=== PATIENT | female | born 1960 | race Caucasian/White ===

== ENCOUNTER 2022-04-17 20:15 | Emergency (ER) | payer BC, MEDICAID ==
[~2022-04-17] VITALS: Ht 162.6 cm; Wt 61.2 kg
--- NOTE | 2022-04-17 21:07 | NUR ---
Dr. Ramírez at bedside for MSE.
[2022-04-17 21:38] LABS: *BILIRUBIN,URIN NEGATIVE (NEGATIVE); *BLOOD, URINE NEGATIVE (NEGATIVE); *CLARITY,URINE CLEAR (CLEAR); *COLOR,URINE YELLOW (YELLOW); *KETONES,URINE NEGATIVE (NEGATIVE); *UROBILINOGEN,URINE 0.2 E.U./dl (NORMAL); LEUKOCYTE ESTERASE ,URINE NEGATIVE (NEGATIVE); NITRITE, URINE NEGATIVE (NEGATIVE); PH,URINE 6.5 (5.0-8.0); UGLUCOSE NEGATIVE (NEGATIVE)
[2022-04-17 21:39] LABS: HEMATOCRIT 36.6 % (31.2-41.9); MEAN CORPUSCULAR HEMOGLOBIN 32.5 uug (24.7-32.8); MEAN CORPUSCULAR VOLUME 96.6 fL (75.5-95.3); PLATELET COUNT (AUTO) 221 K/uL (179-408)
[2022-04-17 21:45] LABS: CARBON DIOXIDE 27 mmol/L (21-32); CHLORIDE 105 mmol/L (98-107); CREATININE 0.6 mg/dL (0.6-1.3); GLUCOSE 115 mg/dL (74-106); UREA NITROGEN, BLOOD 12 mg/dL (7-18)
[2022-04-17] MEDS ORDERED: KETOROLAC TROMETHAMINE 30 MG INJ IM ONE (21:45)
[2022-04-17 21:57] LABS: ALANINE AMINOTRANSFERASE 23 U/L (14-59); ALKALINE PHOSPHATASE 42 U/L (50-136); ASPARTATE AMINOTRANSFERASE 13 U/L (15-37); BILIRUBIN,DIRECT 0.1 mg/dL (0.0-0.2); BILIRUBIN,TOTAL 0.2 mg/dL (0.2-1.0); TOTAL PROTEIN, SERUM 6.8 g/dL (6.4-8.2)
[2022-04-17] MEDS ORDERED: KETOROLAC TROMETHAMINE 30 MG INJ ONE (22:07)
--- NOTE | 2022-04-17 23:24 | NUR ---
Pt out of ER for CT.
[2022-04-18] MEDS ORDERED: NAPR-1164 PO (02:48)
[2022-04-18] MEDS ORDERED: POLY119P2 PO (02:48)
--- NOTE | 2022-04-18 02:53 | NUR ---
Patient discharged to home in stable condition. Written and verbal after care instructions given. Patient verbalizes understanding of instructions. Stressed follow up or return to ER for worsening s/s. Patient out of ER with steady gait, no acute signs of distress, VSS, all belongings taken, provided with copies of lab and imaging results.
[2022-04-18 02:54] VITALS: BP 125/82
== END 2022-04-18 02:54 | disposition home or self-care (01) ==
LOC: ER 20:15
DX: M54.50 Low back pain, unspecified (principal); R94.31 Abnormal electrocardiogram [ECG] [EKG]; K21.9 Gastro-esophageal reflux disease without esophagitis
CPT/HCPCS: 99285; 74176; 71045; 80076; 80048; 81003; 82550; 85025; 85379; 84484 ×2; 36415; 93005; 96372; J1885; J7040; A4663

== ENCOUNTER 2023-05-26 21:00 | Emergency (ER) | payer BC ==
[~2023-05-26] VITALS: Ht 162.6 cm; Wt 62.6 kg
[~2023-05-26 21:00] MED LIST: NAPR-1164 PO; POLY119P2 PO
[2023-05-26 21:46] LABS: BASOPHILS # (AUTO) 0.1 K/UL (0.0-0.2); BASOPHILS % (AUTO) 1.1 % (0.0-2.0); EOSINOPHILS # (AUTO) 0.1 K/uL (0.0-0.7); EOSINOPHILS % (AUTO) 1.6 % (0.0-7.0); HEMATOCRIT 39.2 % (31.2-41.9); HEMOGLOBIN 13.4 g/dL (10.9-14.3); LYMPHOCYTES # (AUTO) 2.6 K/uL (0.8-4.8); LYMPHOCYTES % (AUTO) 39.4 % (20.5-51.5); MEAN CORPUSCULAR HEMOGLOBIN 32.4 uug (24.7-32.8); MEAN CORPUSCULAR HGB CONC 34 g/dL (32.3-35.6); MEAN CORPUSCULAR VOLUME 94.9 fL (75.5-95.3); MONOCYTES # (AUTO) 0.6 K/uL (0.1-1.30); MONOCYTES % (AUTO) 9.1 % (0.0-11.0); NEUTROPHILS # (AUTO) 3.2 K/uL (1.8-8.9); NEUTROPHILS % (AUTO) 48.8 % (38.5-71.5); PLATELET COUNT (AUTO) 232 K/uL (179-408); RED BLOOD CELL COUNT(AUTO) 4.13 MIL/uL (3.63-4.92); RED CELL DISTRIBUTION WIDTH 13.2 % (12.3-17.7); WHITE BLOOD COUNT (AUTO) 6.5 K/uL (3.8-11.8)
[2023-05-26 21:47] LABS: DIFFERENTIAL COMMENT 1
[2023-05-26 21:54] LABS: CALCIUM 8.6 mg/dL (8.5-10.1); CREATININE 0.8 mg/dL (0.6-1.3); POTASSIUM 3.9 mmol/L (3.5-5.1)
[2023-05-26 22:03] LABS: *BILIRUBIN,URIN NEGATIVE (NEGATIVE); *BLOOD, URINE NEGATIVE (NEGATIVE); *CLARITY,URINE CLEAR (CLEAR); *COLOR,URINE YELLOW (YELLOW); *KETONES,URINE NEGATIVE (NEGATIVE); *PROTEIN,URINE NEGATIVE (NEGATIVE); *UROBILINOGEN,URINE 0.2 E.U./dl (NORMAL); LEUKOCYTE ESTERASE ,URINE NEGATIVE (NEGATIVE); NITRITE, URINE NEGATIVE (NEGATIVE); PH,URINE 5.5 (5.0-8.0); UGLUCOSE NEGATIVE (NEGATIVE)
[2023-05-26 22:07] LABS: ALBUMIN 3.8 g/dL (3.4-5.0); BILIRUBIN,TOTAL 0.2 mg/dL (0.2-1.0); TOTAL PROTEIN, SERUM 7.6 g/dL (6.4-8.2)
[2023-05-26] MEDS ORDERED: AZIT250T PO (22:14)
[2023-05-26] MEDS ORDERED: BENZ-13 PO (22:15)
[2023-05-26] MEDS ORDERED: ALBU18HF2 INH (22:43)
[2023-05-26 23:00] VITALS: BP 120/16; O2SAT 98
== END 2023-05-26 23:01 | disposition home or self-care (01) ==
LOC: ER 21:02
DX: J40 Bronchitis, not specified as acute or chronic (principal); K21.9 Gastro-esophageal reflux disease without esophagitis; Z79.899 Other long term (current) drug therapy; Z20.822 Contact with and (suspected) exposure to COVID-19
CPT/HCPCS: 36415; 71045; 84484; 85025; A4606; A4663

== ENCOUNTER 2025-01-12 12:06 | Emergency (ER) | payer BC ==
[~2025-01-12] VITALS: Ht 162.6 cm; Wt 62.6 kg
[~2025-01-12 12:06] MED LIST changes: +ALBU18HF2 INH; +AZIT250T PO; +BENZ-13 PO
[2025-01-12] MEDS ORDERED: OMEP20CA15 PO (12:27)
[2025-01-12 12:47] LABS: PLATELET COUNT (AUTO) 192 K/uL (179-408); RED BLOOD CELL COUNT(AUTO) 4.30 MIL/uL (3.63-4.92); RED CELL DISTRIBUTION WIDTH 13.6 % (12.3-17.7); WHITE BLOOD COUNT (AUTO) 5.5 K/uL (3.8-11.8)
[2025-01-12 12:52] LABS: CREATININE 0.5 mg/dL (0.6-1.3); SODIUM SERUM 139.0 mmol/L (136-145); UREA NITROGEN, BLOOD 14.0 mg/dL (7-18)
[2025-01-12] MEDS ORDERED: ONDANSETRON 4 MG/2 ML VIAL ONE (12:57)
[2025-01-12] MEDS ORDERED: HYDROMORPHONE 1 MG/1 ML DISP.SYRIN ONE (12:58)
[2025-01-12 12:59] LABS: ASPARTATE AMINOTRANSFERASE 7.0 U/L (15-37); TOTAL PROTEIN, SERUM 6.3 g/dL (6.4-8.2)
[2025-01-12] MEDS: HYDROMORPHONE 1 MG/1 ML DISP.SYRIN IV ONE (13:04)
[2025-01-12] MEDS: ONDANSETRON 4 MG/2 ML VIAL IV ONE (13:04)
[2025-01-12] MEDS ORDERED: SWABABLE VALVE TRANSFER SET EA MC ONE (14:02)
[2025-01-12] MEDS ORDERED: IOHEXOL 300MG/ML 100 ML INFUS..BTL ONE (14:02)
[2025-01-12] MEDS ORDERED: IV NORMAL SALINE 250 ML IV ONE (14:02)
[2025-01-12 15:34] LABS: *BILIRUBIN,URIN NEGATIVE (NEGATIVE); *BLOOD, URINE NEGATIVE (NEGATIVE); *CLARITY,URINE CLEAR (CLEAR); *COLOR,URINE YELLOW (YELLOW); *KETONES,URINE NEGATIVE (NEGATIVE); *PROTEIN,URINE NEGATIVE (NEGATIVE); *UROBILINOGEN,URINE 0.2 E.U./dl (NORMAL); LEUKOCYTE ESTERASE ,URINE NEGATIVE (NEGATIVE); NITRITE, URINE POSITIVE (NEGATIVE); UGLUCOSE NEGATIVE (NEGATIVE)
[2025-01-12 16:03] LABS: SQUAMOUS EPITHELIAL CELL,UR NONE SEEN /HPF (NONE SEEN)
[2025-01-12] MEDS ORDERED: RIFA550T PO (16:15)
[2025-01-12] MEDS ORDERED: ONDA4TAB5 PO (16:15)
[2025-01-12] MEDS ORDERED: ACET1TAB23 PO (16:32)
[2025-01-12 16:36] VITALS: BP 120/66; TEMP 97.9; O2SAT 97
[2025-01-12] MEDS ORDERED: HYDR-4275 PO (23:09)
[2025-01-12] MEDS ORDERED: CIPR500T5 PO (23:09)
[2025-01-12] MEDS ORDERED: LACT10SO58 PO (23:12)
== END 2025-01-12 16:38 | disposition home or self-care (01) ==
LOC: ER 12:09
DX: K52.9 Noninfective gastroenteritis and colitis, unspecified (principal); E46 Unspecified protein-calorie malnutrition; E83.51 Hypocalcemia; K21.9 Gastro-esophageal reflux disease without esophagitis; Z79.899 Other long term (current) drug therapy; Z68.23 Body mass index [BMI] 23.0-23.9, adult
CPT/HCPCS: 99285; 74177; 96374; 96375; 80053; 81001; 82607; 83690; 85025; 87086; 36415; J2405; Q9967; J1171; J7040; A4606; A4663

== ENCOUNTER 2025-01-12 22:06 | Emergency (ER) | payer BC ==
[~2025-01-12] VITALS: Ht 162.6 cm; Wt 62.6 kg
[~2025-01-12 22:06] MED LIST changes: +ACET1TAB23 PO; +OMEP20CA15 PO; +ONDA4TAB5 PO; +RIFA550T PO
[2025-01-12] MEDS: IV NORMAL SALINE 1000 ML BAG IV ONE (22:58)
[2025-01-12 23:00] LABS: PLATELET COUNT (AUTO) 172 K/uL (179-408); RED BLOOD CELL COUNT(AUTO) 4.01 MIL/uL (3.63-4.92); RED CELL DISTRIBUTION WIDTH 13.0 % (12.3-17.7); WHITE BLOOD COUNT (AUTO) 4.5 K/uL (3.8-11.8)
[2025-01-12] MEDS ORDERED: FAMOTIDINE. 20 MG/2 ML VIAL IV ONE (23:00)
[2025-01-12] MEDS ORDERED: METOCLOPRAMIDE HCL 10 MG/2 ML VIAL ONE (23:00)
[2025-01-12] MEDS ORDERED: KETOROLAC TROMETHAMINE 30 MG INJ ONE (23:00)
[2025-01-12 23:05] LABS: CREATININE 0.7 mg/dL (0.6-1.3); SODIUM SERUM 137.0 mmol/L (136-145); UREA NITROGEN, BLOOD 15.0 mg/dL (7-18)
[2025-01-12] MEDS: FAMOTIDINE. 20 MG/2 ML VIAL IV ONE (23:08)
[2025-01-12] MEDS: KETOROLAC TROMETHAMINE 30 MG INJ IVP ONE (23:08)
[2025-01-12] MEDS: METOCLOPRAMIDE HCL 10 MG/2 ML VIAL IV ONE (23:08)
[2025-01-12] MEDS ORDERED: HYDR-4275 PO (23:09)
[2025-01-12] MEDS ORDERED: CIPR500T5 PO (23:09)
[2025-01-12] MEDS ORDERED: LACT10SO58 PO (23:12)
[2025-01-12] MEDS ORDERED: CIPROFLOXACIN IV 200 ML IV ONE (23:16)
[2025-01-12] MEDS: CIPROFLOXACIN IV 400 MG in PREMIXED 1 EACH IV ONE (23:20)
[2025-01-13 00:24] VITALS: BP 103/63; TEMP 98.3; O2SAT 98
== END 2025-01-13 00:24 | disposition home or self-care (01) ==
LOC: ER 22:06
DX: K52.9 Noninfective gastroenteritis and colitis, unspecified (principal); R53.1 Weakness; R55 Syncope and collapse; K21.9 Gastro-esophageal reflux disease without esophagitis; Z79.899 Other long term (current) drug therapy
CPT/HCPCS: 36415; 83605; 85025; A4606; A4663; J0744; J1308; J1885; J2765; J7040